=== PATIENT | female | born 1955 | race Caucasian/White ===

== ENCOUNTER 2017-07-19 13:13 | Emergency (ER) | END 2017-07-19 17:32 | disposition home or self-care (01) ==

== ENCOUNTER 2018-05-02 17:58 | Emergency (ER) | END 2018-05-02 20:44 | disposition home or self-care (01) ==

== ENCOUNTER 2018-10-16 22:48 | Emergency (ER) | payer OTHER ==
[~2018-10-16] VITALS: Ht 157.5 cm; Wt 94.5 kg
[~2018-10-16 22:48] MED LIST: ALBU18HF INHALATION; AZIT250T PO; CYCL10TA7 PO; GUAI5SYR2 PO; HYDR-3980 PO; IBUP-1542 PO; IBUP800T48 PO; PRED20TA PO
[2018-10-16 22:58] VITALS: Ht 157.5 cm; Wt 94.5 kg
[2018-10-17] MEDS ORDERED: IPRATROPIUM (NEB) 0.5 MG/2.5 ML AMP INH STA (01:26)
[2018-10-17] MEDS ORDERED: ALBUTEROL 0.083% (NEB) 2.5 MG/3 ML AMP INH STA (01:26)
[2018-10-17 01:30] VITALS: BP 165/87; RESP 18
[2018-10-17] MEDS ORDERED: DEXAMETHASONE 10 MG/ML 1 ML INJ IV ONE (01:30)
--- NOTE | 2018-10-17 02:50 | ERD ---
ER Documentation Chief Complaint Chief Complaint SOB x 1h; chest pressure; hx asthma use ventolin HPI This is a 63-year-old female with a history of asthma, who presents with shortness of breath and chest pressure for the last several hours. She has history of asthma and she has had similar episode before in the past. She denies fever, she did not have a specific trigger, she has not had any leg swelling, no hemoptysis, no recent travel or immobility. ROS All systems reviewed and are negative except as per history of present illness. Medications Home Meds Active Scripts Hydrocodone/Acetaminophen ([place] 10-325 Tablet) 1 Each Tablet, 1 TAB PO Q6H PRN for PAIN, #15 TAB Prov:LISANDRO DUNHAM PA-C 05/02/18 Ibuprofen* (Motrin*) 800 Mg Tab, 800 MG PO Q6, #30 TAB Prov:LISANDRO DUNHAM PA-C 05/02/18 Cyclobenzaprine Hcl* (Cyclobenzaprine Hcl*) 10 Mg Tablet, 10 MG PO QHS, #15 TAB Prov:LISANDRO DUNHAM PA-C 05/02/18 Ibuprofen* (Motrin*) 600 Mg Tab, 600 MG PO Q6, #30 TAB Prov:SHAWNA VIERA PA-C 07/19/17 Guaifenesin-Dextromethorphan* (Robitussin* DM) 100MG/10MG/5ML Syrup, 10 ML PO Q6H PRN for COUGH for 5 Days, ML Prov:SHAWNA VIERA PA-C 07/19/17 Albuterol Sulfate* (Ventolin HFA*) 18 Gm Hfa.aer.ad, 2 PUFF INHALATION Q4H, #1 INHALER Prov:SHAWNA VIERA PA-C 07/19/17 Prednisone* (Prednisone*) 20 Mg Tab, 40 MG PO DAILY for 4 Days, TAB Prov:SHAWNA VIERA PA-C 07/19/17 Azithromycin* (Zithromax*) 250 Mg Tablet, 250 MG PO .ZPACK DIRECTED, #6 TAB TAKE 500 MG (2 TABS) THE FIRST DAY THEN 250 MG (1 TAB) DAYS 2-5 Prov:SHAWNA VIERA PA-C 07/19/17 Allergies Allergies: Coded Allergies: No Known Allergy (Unverified , 07/19/17) PMhx/Soc History of Surgery: No Hx Respiratory Disorders: Yes (ASTHMA) Hx Cardiac Disorders: Yes (HTN) Hx Miscellaneous Medical Probl: Yes (THYROID) Hx Alcohol Use: No Hx Substance Use: No Hx Tobacco Use: No Smoking Status: Never smoker Physical Exam Vitals Vital Signs Date Temp Pulse Resp B/P (MAP) Pulse Ox O2 O2 Flow FiO2 Time Delivery Rate 10/17/18 75 20 97 21 02:08 10/17/18 98.2 18 165/87 98 01:30 (113) 10/16/18 98.2 79 18 165/87 98 22:58 (113) Physical Exam Const: No acute distress Head: Atraumatic Eyes: Normal Conjunctiva ENT: Normal External Ears, Nose and Mouth. Neck: Full range of motion. No meningismus. Resp: Wheezing noted bilaterally, no rales Cardio: Regular rate and rhythm, no murmurs Abd: Soft, non tender, non distended. Normal bowel sounds Skin: No petechiae or rashes Back: No midline or flank tenderness Ext: No cyanosis, or edema Neur: Awake and alert Psych: Normal Mood and Affect Result Diagram: 10/17/18 0154 10/17/18 0154 Results 24 hrs Laboratory Tests Test 10/17/18 01:54 White Blood Count 7.1 10^3/ul Red Blood Count 4.63 10^6/ul Hemoglobin 13.4 g/dl Hematocrit 41.4 % Mean Corpuscular Volume 89.4 fl Mean Corpuscular Hemoglobin 28.9 pg Mean Corpuscular Hemoglobin Concent 32.4 g/dl Red Cell Distribution Width 12.2 % Platelet Count 214 10^3/UL Mean Platelet Volume 10.8 fl Immature Granulocytes % 0.300 % Neutrophils % 58.4 % Lymphocytes % 29.9 % Monocytes % 7.6 % Eosinophils % 3.2 % Basophils % 0.6 % Nucleated Red Blood Cells % 0.0 /100WBC Immature Granulocytes # 0.020 10^3/ul Neutrophils # 4.2 10^3/ul Lymphocytes # 2.1 10^3/ul Monocytes # 0.5 10^3/ul Eosinophils # 0.2 10^3/ul Basophils # 0.0 10^3/ul Nucleated Red Blood Cells # 0.0 10^3/ul Sodium Level 140 mmol/L Potassium Level 4.1 mmol/L Chloride Level 103 mmol/L Carbon Dioxide Level 27 mmol/L Anion Gap 10 Blood Urea Nitrogen 18 mg/dl Creatinine 0.50 mg/dl Est Glomerular Filtrat Rate mL/min > 60 mL/min Glucose Level 123 mg/dl Calcium Level 9.4 mg/dl Total Bilirubin 0.4 mg/dl Direct Bilirubin 0.00 mg/dl Indirect Bilirubin 0.4 mg/dl Aspartate Amino Transf (AST/SGOT) 31 IU/L Alanine Aminotransferase (ALT/SGPT) 26 IU/L Alkaline Phosphatase 124 IU/L Troponin I < 0.012 ng/ml B-Type Natriuretic Peptide 99 PG/ML Total Protein 7.6 g/dl Albumin 4.3 g/dl Globulin 3.30 g/dl Albumin/Globulin Ratio 1.30 Current Medications Medications Dose Sig/Karen Start Time Status Last (Trade) Ordered Route PRN Stop Time Admin Dose Reason Admin Albuterol 5 mg ONCE STAT 10/17/18 DC 10/17/18 (Proventil INH 01:26 10/17/18 02:07 0.083% (Neb)) 01:38 Ipratropium 0.5 mg ONCE STAT 10/17/18 DC 10/17/18 [place] INH 01:26 10/17/18 02:07 (Atrovent 01:38 0.02% (Neb)) 10 mg ONCE ONCE 10/17/18 DC 10/17/18 Dexamethasone IV 01:30 10/17/18 01:58 (Decadron) 01:38 Procedures/MDM This 63-year-old female who presents for evaluation of shortness of breath and wheezing. Her history and physical consistent with likely acute asthma exacerbation, she is given nebulizer treatments as well as dexamethasone for steroid treatment. Her chest x-ray did not show any consolidations, given her age she was evaluated for acute coronary syndrome, this workup was negative, and her EKG did not show any signs of acute ischemia, on reevaluation, the patient felt significantly better, had no respiratory distress, and felt comfortable with discharge home at discharge patient with no acute distress. EKG: Rate/Rhythm: Normal Sinus Rhythm QRS, ST, T-waves: There are T wave inversions in V1 through V4, when compared with prior EKG from 2018 there are no acute changes. No changes consistent w/ acute ischemia Impression: No evidence of ischemia or arrhythmia Departure Condition: Stable HEREDIA,MAAME MD Oct 17, 2018 02:50
[2018-10-17 06:40] VITALS: PULSE 70
== END 2018-10-17 06:41 | disposition home or self-care (01) ==
LOC: E/R 22:48
DX: J45.901 Unspecified asthma with (acute) exacerbation (principal); I10 Essential (primary) hypertension
CPT/HCPCS: 71045; 80053; 83880; 84484; 85025; 93005; 94664; 96374; J1100; Z7502; Z7610